=== PATIENT | female | born 1945 | race Caucasian/White ===

== ENCOUNTER 2018-11-12 09:47 | Inpatient (IN) | payer MEDICARE, OTHER, SELFPAY ==
[2018-10-28 13:42] VITALS: BMI 25.0
[2018-11-12] VITALS (13 sets, daily range): BP systolic 123–158; BP diastolic 61–91; PULSE 53–88; RESP 12–18; TEMP 35.6–36.8; O2SAT 95–100; BMI 25.0
--- NOTE | 2018-11-12 | DI.RAD.S_ITS ---
PROCEDURE: XR HIP W PEL IF DONE RT 2V INDICATIONS: TOTAL RIGHT HIP TECHNIQUE: AP pelvis and lateral view of the right hip acquired. COMPARISON: [facility], [place], XR HIP W PEL IF DONE RT 2V, 11/12/2018, 13:02. FINDINGS: Bones: Patient is status post right hip arthroplasty, with hardware components in expected positions. The hip joint appears congruent. Left hip osteophytic degenerative changes are noted. The visualized bony structures appear intact. Soft tissues: Overlying postoperative changes are noted. No suspicious soft tissue densities. IMPRESSION: Expected postsurgical change for right hip arthroplasty. Dictated by: Suzy Santos MD, PhD on 11/12/2018 at 16:22 Approved by: Suzy Santos MD, PhD on 11/12/2018 at 16:23
--- NOTE | 2018-11-12 06:00 | DI.RAD.S_ITS ---
PROCEDURE: XR HIP W PEL IF DONE RT 2V INDICATIONS: INTEROPERATIVE RIGHT TOTAL HIP TECHNIQUE: 4 spot fluoroscopic intraoperative views of the right hip and pelvis COMPARISON: None. FINDINGS: 4 spot fluoroscopic images demonstrating expected intraoperative alignment of right hip arthroplastic components. Dictated by: Morgan Silverman M.D. on 11/12/2018 at 16:45 Approved by: Morgan Silverman M.D. on 11/12/2018 at 16:46
[2018-11-12] MEDS: LACTATED RINGERS 1,000 ML 42 ML IV ×2 (10:27→14:21)
[2018-11-12] MEDS: VANCOMYCIN 1,000 MG/200 ML FROZ.PIGGY 200 MG IV (10:29)
[2018-11-12] MEDS: ACETAMINOPHEN 325 MG TABLET 975 MG PO ×2 (10:29→20:10)
[2018-11-12] MEDS: CELECOXIB 200 MG CAPSULE PO (10:29)
[2018-11-12] MEDS: PREGABALIN 75 MG CAPSULE PO (10:29)
--- NOTE | 2018-11-12 10:48 | PM.PREOP ---
Pre-operative Note Interval Note History & Physical reviewed/Exam performed by Physician: Yes Changes to H&P: No
--- NOTE | 2018-11-12 10:48 | PM.OP.1 ---
Operative Date/Time/Diagnoses Date of procedure: 11/12/18 Time of procedure: 11:11 Pre-op diagnosis: Right hip OA Post-op diagnosis: same Procedure & Clinicians Procedure: Right total hip arthroplasty anterior approach Same procedure as scheduled: Yes Indications: The patient has had progressively worsening right hip pain with radiographic changes consistent with arthritis. Non-operative management has failed and the patient has requested total hip replacement. The risks, benefits and alternatives to surgery were discussed with the patient prior to proceeding. Risks discussed included, but were not limited to, failure to relieve pain, leg length discrepancy, dislocation, stiffness, infection, nerve damage, deep venous thrombosis, pulmonary embolism, stroke, coma, heart attack, permanent paralysis and , as well as the potential need for eventual revision of the prosthetic. Surgeon: Zoraida Andrade Design Specialist: Kavita Gutiérrez Anesthesia Type: General and Spinal Operative Notes Findings: Severe right hip osteoarthritis, good stability, protrusio, tight hip Closure Type: primary Specimen(s): none sent Implants & Drains: Andrade [employer] Nephew anthology standard offset 7 standard offset, 36 x -3, 54 R3 cup Estimated Blood Loss (mL): 250 Blood products transfused: none Procedure in detail: The patient was brought to the operating room. Patient was carefully positioned in the supine position. Time-out was performed and antibiotics were given. Anesthesia was induced. She was positioned in the on the table in order to allow hyperextension of the hip. Bilateral lower extremities were prepped and draped in a standard sterile fashion. An anterior right hip incision was made 1 fingerbreadth lateral to the anterior superior iliac spine and extended distally towards the greater trochanter. Dissection was carried out through skin and subcutaneous tissues. The skin and subcutaneous tissues were carefully injected with Lidocaine with epi. Superficial hemostasis was achieved. The fascia over the tensor fascia richie was defined and incised with a knife. Two Allis clamps were used to grasp the fascia. Tensor fascia richie was retracted laterally. A gelpi retractor was placed. Dissection was carried out down along the neck. The circumflex vessels were carefully identified and cauterized with the Aqua Mantis. There was good visualization of the femoral neck. A Cobra was placed superior to the neck and the gluteus fibers were carefully stripped from that superior aspect of the capsule. A 2nd retractor was placed along the inferior aspect of the neck. The rectus insertion along the capsule was partially released. A 3rd retractor that was then gently placed over the rim of the acetabulum under the rectus. Capsule was carefully incised and released from the intertrochanteric line circumferentially superior to the mid sagittal line and inferiorly to the mid sagittal line until the lesser trochanter was palpable. A tag stitch was placed both in the superior and inferior limb of the capsular insertion. Along the acetabulum capsule was also released up to the mid sagittal 12:00 position. A portion of the labrum was resected. A saw was used to perform an osteotomy at the level of the intertrochanteric line and the junction of the superior femoral neck leaving approximately 1 finger breath of residual inferior neck above the lesser trochanter. A 2nd cut was made along the femoral neck at the base of the head and a napkin ring of neck was removed. Corkscrew was placed in the femoral head and the head was removed without difficulty. Retractors were then repositioned around the acetabulum. Residual labrum was resected and additional osteophytes were removed. She had significant protrusio and it was somewhat difficult to remove the head but it was removed without injury to the acetabulum. The head was somewhat soft and I removed it using a combination of corkscrew Blood as well as the tenaculum. The capsule was meticulously mobilized. It was very tight around the femur secondary to her protrusio. A reamer that was 4 mm below the templated size was placed by hand in the acetabulum and it was reamed to centralize the acetabulum. It was then reamed up to 2 under the templated size and fluoroscopy was brought in to confirm the position of the reaming and depth of reaming. I reamed 1 under the anticipated size. She had somewhat of an 80 duction contracture as well as flexion contracture I specifically mobilized around the acetabulum in order to allow passage of instruments. I also resected about 1-2 mm of additional neck in order to make a bigger gap in order to allow passage of the instruments. Anesthesia gave supplemental anesthesia to make sure the patient was completely relaxed and with traction reaming was performed and the cup was inserted. It was tamped into place was noted to be stable. It was intentionally set about 1 mm less deep than the sclerotic subchondral protrusio shadow. The stability of the cup was tested and was noted to be stable. A trial liner was placed. A trial cup was placed and noted that it was appropriately sized and fluoroscopy confirmed position and depth. The component was open and inserted without difficulty fluoroscopic imaging was used to confirm that the cup had been adequately seated and was well positioned. Neutral poly trial liner was placed. The cup was tested and noted to be stable. Attention was then directed to the femur. The femur was gently hyperextended additional capsular release was performed as needed in order to allow adequate visualization of the proximal femur with elevation of the femur. Patient was placed in a hyperextended slightly abducted position with maximum external rotation. Box osteotome was used to check for any residual neck as well as sclerotic bone along the trochanter. [place] pepper was placed in the femur. Additional broaching was performed. Canal finder was used to determine the alignment of the canal and position. Size 1 broach was placed. The canal was then appropriately broached up to the templated size as long as there was adequate stability of the broach and serial advancement of the broach without excessive impingement. Specific attention was directed at avoiding varus attempting to direct the distal aspect of the broach more anteriorly and avoiding excessive anteversion. Trial reduction showed acceptable range of motion, good stability, no posterior impingement, gnosticism of leg length and appropriate lateral shuck. I also hyperflexed the hip and checked that there was no impingement anteriorly and there was good stability with flexion, abduction and internal rotation. Final neutral poly was placed without difficulty. Marcaine and Exparel were injected.. The stem was placed without difficulty. Repeat trial reduction and x-ray showed acceptable overall position, length, and no evidence of the femoral fracture. Final head was placed. Wound was meticulously irrigated with normal saline. The hip was reduced and additional Exparel and Marcaine were injected. The capsule was closed with interrupted nonabsorbable sutures. The fascia of the tensor was closed with interrupted and running Vicryl. No drain was placed. Any tensor fascia richie muscle that appeared to be contused or injured which was a minimal amount was carefully resected. Capsule around the tensor was injected with Exparel and Marcaine. The skin was closed with barbed stitches for the subcutaneous tissue and skin. We also used surgical glue. The wound was dressed sterilely. It was meticulously irrigated with normal saline. Patient was transferred to recovery room in satisfactory condition. Complications: none Condition: stable Disposition: Acute Care Plan for aftercare: The patient will be maintained on a standard total hip replacement protocol with weight bearing as tolerated and anterior hip precautions. The patient will receive Aspirin and sequential compression devices for DVT prophylaxis. The patient will be discharged home when safe for the home environment.
[2018-11-12] MEDS: CEFAZOLIN 2 GM/100 ML FROZ.PIGGY IV ×2 (11:30→20:22)
[2018-11-12] MEDS: TRANEXAMIC ACID 1,000 MG VIAL 1000 MG INJ ×2 (11:40→15:11)
[2018-11-12] MEDS: LIDOCAINE 1% W/EPI INJ 20 ML INJ (11:55)
--- NOTE | 2018-11-12 12:13 | SUR.OPER ---
Supine, head on pillow, torso on pink pad positioner. Iliac crest at flex of foot end of table. Gel roll under operative hip. Both arms secured on arm boards <90 degrees abduction.
[2018-11-12] MEDS: BUPIVACAINE 0.25% W/ EPI VIAL 50 ML INJ (12:25)
[2018-11-12] MEDS: BUPIVACAINE LIPOSOME 266 MG/20 ML VIAL INJ (12:30)
[2018-11-12] MEDS: POVIDONE-IODINE 15 ML, SODIUM CHLORIDE 0.9% 250 ML TOP (12:34)
[2018-11-12] MEDS: LACTATED RINGERS 1,000 ML 125 ML IV (17:02)
--- NOTE | 2018-11-12 18:29 | PC.NURSE ---
Addendum entered by Shikha Gomez R.N. 11/12/18 21:46: Pt had relatively uneventful evening. Satisfactory post op course. Dsg CDI. Assisted to BSC to void. Call light w/in reach, bed alarm on for pt safety. Continue w/plan of care Original Note: Pt arrived from PACU at 1640. Drowsy, awakens easily. Lungs clear, SpO2 100% RA. Dsg to right anterior hip CDI. Stable post op course. Call light w/in reach, bed alarm on for pt safety.
[2018-11-12] MEDS: ASPIRIN EC 81 MG TABLET PO (20:11)
[2018-11-12] MEDS: DOCUSATE 100 MG CAPSULE PO (20:11)
[2018-11-13] MEDS: IBUPROFEN 600 MG TABLET PO ×3 (00:29→14:00)
[2018-11-13] MEDS: LACTATED RINGERS 1,000 ML 125 ML IV (01:31)
[2018-11-13] MEDS: CEFAZOLIN 2 GM/100 ML FROZ.PIGGY IV (03:36)
[2018-11-13 04:17] VITALS: BP 120/51; PULSE 63; RESP 16; TEMP 36.6; O2SAT 100
--- NOTE | 2018-11-13 04:24 | DI.RAD.S_ITS ---
PROCEDURE: XR HIP W PEL IF DONE RT 2V INDICATIONS: Stood up at bedside and Iron popping sound. TECHNIQUE: AP pelvis with lateral view(s) of the right hip(s). COMPARISON: [facility], , XR HIP W PEL IF DONE RT 2V, 11/12/2018, 15:55. FINDINGS: Bones: No fractures or dislocations. Expected postoperative alignment of right hip arthroplasty. Pelvic ring appears intact. No suspicious bony lesions. Overlying postsurgical soft tissue changes as before. Multiple pelvic phleboliths. [id number] left hip joint degeneration. Chronic calcification projecting at the left greater trochanter as before. IMPRESSION: Expected postoperative alignment of right hip arthroplasty. No evidence of hardware failure. Acute fracture seen. Dictated by: Morgan Silverman M.D. on 11/13/2018 at 7:58 Approved by: Morgan Silverman M.D. on 11/13/2018 at 7:59
[2018-11-13 06:21] LABS: Hematocrit 35.5 % (36-46); Hemoglobin 11.9 g/dL (12.0-16.0)
--- NOTE | 2018-11-13 06:34 | PC.NURSE ---
Pt. declined any pain med. this morning. Was been sleeping since she got up to BSC @ 3
--- NOTE | 2018-11-13 06:35 | PC.NURSE ---
Pt. declined any pain med. this morning. States I'm okay, no pain, will cont. POC & monitor.
[2018-11-13 07:00] VITALS: BP 126/47; PULSE 70; RESP 16; TEMP 36.6; O2SAT 100
--- NOTE | 2018-11-13 07:53 | P.DS_ITS ---
History of Present Illness Date Patient Seen: 11/13/18 Time Patient Seen: 07:53 Chief complaint: [id number] Narrative: The patient has had progressively worsening right hip pain with radiographic changes consistent with arthritis. Non-operative management has failed and the patient has requested total hip replacement. The risks, benefits and alternatives to surgery were discussed with the patient prior to proceeding. Risks discussed included, but were not limited to, failure to relieve pain, leg length discrepancy, dislocation, stiffness, infection, nerve damage, deep venous thrombosis, pulmonary embolism, stroke, coma, heart attack, permanent paralysis and , as well as the potential need for eventual revision of the prosthetic. Discharge Providers Date of admission: 11/12/18 09:47 Primary care physician: OSEI Peters Consults: 11/12/18 06:00 Consult to Anesthesiology Routine Comment: Consulting Provider: Anesthesiologist Reason for consultation: Regional block for post operative pain control 11/12/18 16:49 Consult to Discharge Planning Routine Comment: Consult to Physical Therapy Evaluate & Treat Comment: Physician Instructions: post op HODA protocol Consult to Respiratory Therapy Evaluate & Treat Comment: Physician Instructions: Evaluate and treat Discharge provider: Adelaida Choudhary PA-C Discharge Date: 11/13/18 Summary Discharge Diagnosis: s/p right total hip replacement Hospital Course: Leonid was admitted for a left total hip replacement with Dr. Andrade and she consented to procedure. Hospital course was unremarkable. On postop day 1. Patient was ready for discharge home. She was eating and voiding without difficulty or assistance. She has been up and mobilizing with physical therapy after surgery. She has all her medications at home. She has her postop therapy scheduled. She has ASA for DVT prophylaxis. Status at Discharge Functional status at discharge: uses cane/walker Exam Vital Signs (past 8 hours): - 11/13/18 04:17 Temperature 97.8 F Pulse Rate 63 Respiratory Rate 16 Blood Pressure 120/51 L Pulse Oximetry 100 Oxygen Delivery Method Room Air Narrative Exam Narrative: Patient is sitting in bedside chair no acute distress. She is alert and oriented x3. Dressing on right hip is CDI. Calves are soft, compressible, nontender bilaterally. Pulses are symmetrical. Her pain was well -controlled last night with Tylenol. Denies chest pain or shortness of breath. Objective Labs Result Diagrams: 11/13/18 05:34 Labs: Laboratory Results - last 24 hr 11/13/18 05:34 Hgb 11.9 L Hct 35.5 L Discharge Plan Discharge Plan Patient Disposition: Home Discharge comment: DC home this afternoon Discharge Med Rec/Prescriptions Prescriptions: New acetaminophen 325 mg Tablet 975 mg PO TID Qty: 60 RF: 0 aspirin 81 mg Tablet,Delayed Release (Dr/Ec) 81 mg PO BID Qty: 60 RF: 0 Continue chlorpheniramine maleate [Chlor-Trimeton] 4 mg Tablet 4 mg PO PRN PRN (Reason: Allergies) RF: 0 ibuprofen 200 mg Tablet 200 mg PO PRN PRN (Reason: Pain) RF: 0 vitamin B complex Tablet 1 tab PO DAILY RF: 0 tamoxifen 20 mg Tablet 20 mg PO SEEINSTR RF: 0 cholecalciferol (vitamin D3) [Vitamin D3] 5,000 unit Tablet 15,000 unit PO DAILY RF: 0 Follow up/Referrals: Zoraida Andrade MD [Physician] - (5-7 days) Provider Discharge Instructions Diet: Diet as Tolerated Skin/Wound/Dressing Care Report to your healthcare provider any signs of infection, such as:: chills, fever and increased pain Dressing: leave in place for 10-14 days Visit Report/Discharge Packet Instructions: DI for Hip Replacement Discharge Data Primary Care Provider: Caity Linder Attending Provider: Zoraida Andrade Admit Date/Time: 11/12/18 09:47
[2018-11-13] MEDS: ACETAMINOPHEN 325 MG TABLET 975 MG PO ×2 (08:17→14:00)
[2018-11-13] MEDS: CHOLECALCIFEROL (VITAMIN D3) 5,000 UNIT TABLET 15000 UNIT PO (08:18)
[2018-11-13] MEDS: DOCUSATE 100 MG CAPSULE PO (08:18)
[2018-11-13] MEDS: ASPIRIN EC 81 MG TABLET PO (08:26)
--- NOTE | 2018-11-13 09:15 | PT.IIE ---
Current Diagnoses Unilateral primary osteoarthritis, right hip (11/12/18) Stiffness of right hip, not elsewhere classified (11/12/18) Surgery Performed Operation Date: 11/12/18 12:00 Actual Procedures p Total Hip Arthroplasty/Anterior Approach(Right) - Zoraida Andrade MD Surgical History (Last Updated 10/28/18 @ 14:33 by Amber Ng, RN) History of blepharoplasty (Acute) History of colonoscopy (Acute) History of esophagogastroduodenoscopy (EGD) (Acute) Medical History (Last Updated 10/28/18 @ 14:33 by Amber Ng, RN) Achalasia (Acute) Afib (Acute) Allergic rhinitis (Acute) Basal cell carcinoma (BCC) of face (Acute) Breast cancer, right (Acute) Cataract fragments of both eyes following cataract surgery (Acute) Diverticulosis (Acute) Dysphasia (Acute) Osteopenia (Acute) Postmenopausal (Acute) Sciatica (Acute) Shingles (Acute) Squamous cell carcinoma (Acute) Swallowing difficulty (Acute) Tendinopathy of right rotator cuff (Acute) Unilateral primary osteoarthritis, right hip (Acute) Vertigo (Acute) Physical Therapy Inpatient Evaluation/Re-Eval M1 PT/OT-IP Prior Functional Status Start: 11/13/18 13:31 Freq: NEEDED Status: Active Protocol: Document 11/13/18 09:55 AB (Rec: 11/13/18 13:47 AB [id number]) Medical Review Prior Functional Status Medical History Reviewed Yes Communication able to make needs known Mobility and Gait pt stated thta she is indpeendent with all mobilities and ambulation wihtout AD but occasionally uses [employer] pole for outdoor mobility depending on pain level Social History Household Members none Living Arrangements House Number of Floors (Floors) Two Floors Number of Stairs To Enter/Railing? pt stays on main level of the house; has 3 steps to enter with R rail ascending but also has a ramp Home Environment High Toilet Walk in Shower Home Equipment Front Wheel Walker Straight Cane Raised Toilet Seat Without Armrests Shower Seat with Backrest Incinerator Attendant Grab Bars Near Toilet Grab Bars In Shower Employment Status Retired Additional Social History Comment has hiking pole stated that her daughter in law will stay with her for 1-2 days and then her son will stay with her afterwards and will have 24/7 assistance for ~ 1 week. M2 PT-IP Current Condition Start: 11/13/18 13:31 Freq: NEEDED Status: Active Protocol: Document 11/13/18 09:55 AB (Rec: 11/13/18 13:47 AB [id number]) Physical Therapy Current Condition Current Condition Evaluation Date 11/13/18 Treatment Diagnosis s/p R HODA anterior approach; difficulties in walking Onset Date 11/12/18 Precautions Anterior Hip Precautions No Hip Extension No Hip External Rotation Weight Bearing Status Weight Bearing Status Weight Bear as Tolerated M3 PT-IP Subjective Start: 11/13/18 13:31 Freq: NEEDED Status: Active Protocol: Document 11/13/18 09:55 AB (Rec: 11/13/18 13:47 AB [id number]) Subjective Physical Therapy Visit Type Type Initial Evaluation Visit Start Time 09:55 Visit Stop Time 10:57 Total Visit Minutes 62 Number of [employer] SUPERVISOR Visits 0 Physical Therapy Visit Comments Patient Comments pt agreeable to do PT Therapy Pain Assessment Pain When Pain Assessed At Rest Pain Present Pain Present Pain Reported Location Right Hip Intensity 2 Scale Used Numeric (1 - 10) Pain Management Techniques Apply Cold Re-positioning Timing of Activity with Medications M4 PT-IP Mobility and Gait Start: 11/13/18 13:31 Freq: NEEDED Status: Active Protocol: Document 11/13/18 09:55 AB (Rec: 11/13/18 13:47 AB [id number]) PT-Bed Mobility Assessment Supine to Sit Supine to Sit Standby Assistance Sit to Supine Sit to Supine Standby Assistance Scooting Scooting to Edge of Bed Standby Assistance PT-Transfer Assessment Sit to and From Stand Sit to and from Stand Standby Assistance Contact Guard Assistance Equipment Transfer Assistive Device Gait Belt Front Wheeled Walker Orthotic/Prosthetic Devices or Brace: No Transfers Transfer Destination Toilet Transfer Technique pt ambulated to the toilet using FWW Transfer Ability Level of Assist Standby Assistance Contact Guard Assistance 1 Person Assistance Use of Upper Extremities Gait Assessment Gait Gait Assistance Required: Contact Guard Assist Distance (Feet) 100 Assistive Devices Assistive Device Gait Belt Front Wheeled Walker Orthotic/Prosthetic Devices or Brace: No Gait Deviations General Gait Pattern Antalgic Decreased Stride Length Decreased Feet Clearance Factors Limiting Gait Function Factors Limiting Gait Function Decreased Activity Tolerance Decreased Strength Limited Range of Motion Pain Poor Balance Poor Safety Awareness Comments Gait Comments pt ambulated using FWW 100 ft x 2 requiring SBA to CGA and cues for hip precautions. Stair Climbing Assessment Evaluation Level of Assist On Stairs Contact Guard Assistance Minimal Assistance 1 Person Assistance Devices Stair Climbing Assistive Devices Right Railing Technique/Endurance Stair Climbing Direction Ascend and Descend Stair Climbing Technique Step to Step Number of Steps Climbed 3 Query Text: Stair Climbing Set # Repetitions (reps) 2 Comments Stair Climbing Comments caregiver training conducted for stair climbing and daughter in law was able to assist pt safely PT-Balance Assessment Sitting Balance and Reactions Static Sitting Balance Ability Good Dynamic Sitting Balance Ability Good Standing Balance and Reactions Static Standing Balance Ability Fair Dynamic Standing Balance Ability Fair Device Used FWW M5 PT-IP Objective Assessments Start: 11/13/18 13:31 Freq: NEEDED Status: Active Protocol: Document 11/13/18 09:55 AB (Rec: 11/13/18 13:47 AB [id number]) Orientation Orientation/Cognition Level of Alertness Alert Orientation Name Age Birthday Month Date Year Day of Week Place Situation Safety Awareness Decreased Safety Awareness Memory Description Short Term Impaired Gross Range of Motion Lower Extremity ROM Assessment Within Functional Limits Strength Lower Extremity Strength Assessment Right Impaired Knee 3+/5 Coordination Assessment Gross Coordination Gross Coordination WNL Sensation Assessment Sensation Gross Sensation WNL Muscle Tone Muscle Tone WNL Yes M6 PT-IP Treatment Start: 11/13/18 13:31 Freq: NEEDED Status: Active Protocol: Document 11/13/18 09:55 AB (Rec: 11/13/18 13:47 AB [id number]) Physical Therapy Treatment Exercises Exercises Heel Slides Education Education Provided Precautions Weight Bearing Status Post-Op Packet Safety M7 PT-IP Assessment and Plan Start: 11/13/18 13:31 Freq: NEEDED Status: Active Protocol: Document 11/13/18 09:55 AB (Rec: 11/13/18 13:47 AB [id number]) PT Summary Assessment and Plan Potential Rehabilitation Potential Good Status of Condition at Evaluation Stable Summary Impairments Pain ROM Strength Balance Coordination Sensation Tone Cognition Bed Mobility Transfers Gait Activity Tolerance Assessment Summary pt requiring SBA to min A with mobility and will have family to assist her. daughter in law trained to assist pt with stair climbing and educated on how to assist with bed mobility, transfers and ambulation. pt plans to go home later today. Goals Bed Mobility Goal Independent Transfer Goal Independent Front Wheeled Walker Gait Goal Independent Front Wheel Walker Gait Distance 200 Other Goals up/down 3 steps with R rail ascending SBA Days to Meet Goals 3 Frequency of Treatment Frequency Of Treatment Twice a Day Treatment Plan Physical Therapy Treatment Plan Bed Mobility Training Transfer Training Gait Training Therapeutic Exercise Balance Retraining Post Op Education Discharge Planning Hot or Cold Pack Neuromuscular Re-ed Coordination Retraining Manual Therapy Other Recommendations and Next Treatment ambulation, caregiver training Focus , stair climbing training Recommendations To Nursing Amount of Assist Needed 1 Person Assist Discharge Recommendations PT Discharge Recommendations Home with 19/05 Assist Outpatient PT
--- NOTE | 2018-11-13 10:27 | PC.NURSE ---
Pt A&Ox3, minimal complaints of pain & tolerating with po APAP/ibuprofen and ambulating SBA w/FWW. CMS intact, aquacel CDI to anterior thigh. Pt working with PT this morning. Dtr in law at bedside, will continue to monitor.
--- NOTE | 2018-11-13 14:51 | CM.IDA ---
Discharge Planning/Care Management Advanced directive, confirm from FAMILY Start: 11/12/18 17:55 Freq: Q24H Status: Discharge Protocol: Document 11/12/18 18:27 KMD (Rec: 11/12/18 18:28 KMD [id number]) Advance Directive, confirm on record Time 18:28 Person contacted Daughter Copy received Yes Advanced directive available on record Yes CM Discharge Assessment Start: 11/13/18 14:46 Freq: Status: Discharge Protocol: Document 11/13/18 14:46 RAVI (Rec: 11/13/18 14:51 JW [id number]) Discharge Planning Assessment Assigned Necktie Stitcher GEETA Wharton DPOA/Assigned Designee Name Martine Gonzalez, dtr [phone] Simone Cai, son ([place]) Contact Information [phone] Advance Directives? Yes Advance Directives on File No History Provided By Patient Prior Living Arrangements House Household Members none Type of transporation used prior to Drives own vehicle admit Independent with ADL's Yes: Active and Indp on Familia Is Is patient alert and oriented? Yes Barriers to Discharge No Comment Met w/pt and her dtr in law at bedside, explained SW role. Pt has been living on [facility] for approx 4 years, retired, and likes living on [place]. Son and dtr in law live in [place] and have traveled up to care for pt as she is DC home. Pt confident about returning home and has DME and assistance from family. 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 # of Necktie Stitcher Review Status In Process
== END 2018-11-13 14:20 | disposition home or self-care (01) | DRG 470 ==
PROVIDERS: Admitting Provider Orthopaedic Surgery; Family Provider Ophthalmology; PCP Nurse Practitioner Family; Visit Provider Orthopaedic Surgery
PROC: 0SR902Z Replacement of Right Hip Joint with Metal on Polyethylene Synthetic Substitute, Open Approach (ICD-10-PCS; CPT 27130; principal; 2018-11-12 12:00)
DX: M16.11 Unilateral primary osteoarthritis, right hip (principal); Z87.891 Personal history of nicotine dependence
CPT/HCPCS: 36415; 73502; 85014; 85018; 97116; 97161; 97530; C1776; C9290; J0690; J1100; J2250; J2274; J2405; J2704; J3010; J3370

== ENCOUNTER → 2022-08-12 14:04 | Outpatient (CLI) | payer OTHER, SELFPAY ==
[2018-11-12 17:00] VITALS: BMI 25.0
[2022-08-12 17:23] LABS: COVID19 -Nasal RAPID Negative (Negative)
== END ==
PROVIDERS: Family Provider Ophthalmology; PCP Nurse Practitioner Family; Referring Provider Orthopaedic Surgery; Visit Provider Orthopaedic Surgery
DX: Z20.822 Contact with and (suspected) exposure to COVID-19 (principal)
CPT/HCPCS: 87635; C9803

== ENCOUNTER 2022-08-13 05:50 | Day surgery (SDC) | payer OTHER, SELFPAY ==
[2018-11-12 17:00] VITALS: BMI 25.0
[2022-08-06 13:54] VITALS: BMI 25.5
[2022-08-13] VITALS (14 sets, daily range): BP systolic 117–156; BP diastolic 68–88; PULSE 66–79; RESP 11–18; TEMP 34–36.6; O2SAT 95–100; BMI 25.5
--- NOTE | 2022-08-13 06:00 | DI.RAD.S_ITS ---
PROCEDURE: XR HIP W PEL IF DONE LT 2V INDICATIONS: TOTAL LEFT HIP ARTHROPLASTY TECHNIQUE: 4 intraoperative fluoroscopic low resolution spot films were obtained COMPARISON: [facility], [place]NE, XR HIP W PEL IF DONE RT 2V, 11/13/2018, 4:36. FINDINGS: Low resolution intraoperative spot films show total left hip arthroplasty in good position. Partially imaged right hip arthroplasty present as well. IMPRESSION: Fluoroscopic guidance Approved by: Vincent Rodrigues M.D. on 08/13/2022 at 12:53
[2022-08-13] MEDS: LACTATED RINGERS 1,000 ML 42 ML IV ×2 (06:51→09:17)
[2022-08-13] MEDS: VANCOMYCIN 1,000 MG/200 ML PIGGYBACK 200 MG IV (07:10)
[2022-08-13] MEDS: ACETAMINOPHEN 325 MG TABLET 975 MG PO (07:15)
[2022-08-13] MEDS: CELECOXIB 200 MG CAPSULE PO (07:35)
--- NOTE | 2022-08-13 07:44 | P.OP_ITS ---
Operative Date/Time/Diagnoses Date of procedure: 08/13/22 Time of procedure: 07:55 Pre-op diagnosis: left hip OA Post-op diagnosis: same Procedure & Clinicians Procedure: Left total hip arthroplasty anterior approach Same procedure as scheduled: Yes Indications: The patient has had progressively worsening left hip pain with radiographic turner ges consistent with arthritis. Non-operative management has failed and the patient has requested total hip replacement. The risks, benefits and alternatives to surgery were discussed with the patient prior to proceeding. Risks discussed included, but were not limited to, failure to relieve pain, leg length discrepancy, dislocation, stiffness, infection, nerve damage, deep venous thrombosis, pulmonary embolism, stroke, coma, heart attack, permanent paralysis and , as well as the potential need for eventual revision of the prosthetic. Surgeon: Zoraida Andrade [employer] Supervisor: Eriberto Ledezma Anesthesia Type: General and Spinal Operative Notes Findings: Severe left hip osteoarthritis, good stability, soft bone Closure Type: primary Specimen(s): none sent Prosthetic devices, grafts, tissues, transplants, or devices: [employer]rade [employer] Nephew R3 54 cup, neutral poly liner, size 6 standard offset anthology,-3 x 36 cobalt chrome femoral head, one 6.5mm screw Estimated Blood Loss (mL): 250 Blood products transfused: none Procedure in detail: The patient was brought to the operating room. Patient was carefully positioned in the supine position. Time-out was performed and antibiotics were given. Anesthesia was induced. She was positioned in the on the table in order to allow hyperextension of the hip. The left lower extremity was prepped and draped in a standard sterile fashion. An anterior left hip incision was made 1 fingerbreadth lateral to the anterior superior iliac spine and extended distally towards the greater trochanter. Dissection was carried out through skin and subcutaneous tissues. Superficial hemostasis was achieved. The fascia over the tensor fascia richie was defined and incised with a knife. Two Allis clamps were used to grasp the fascia. Tensor fascia richie was retracted laterally. A gelpi retractor was placed. Dissection was carried out down along the neck. The circumflex vessels were carefully identified and cauterized with the Aqua Mantis. There was good visualization of the femoral neck. A Cobra was placed superior to the neck and the gluteus fibers were carefully stripped from that superior aspect of the capsule. A 2nd retractor was placed along the inferior aspect of the neck. The rectus insertion along the capsule was partially released. A 3rd retractor that was then gently placed over the rim of the acetabulum under the rectus. Capsule was carefully incised and released from the intertrochanteric line circumferentially superior to the mid sagittal line and inferiorly to the mid sagittal line until the lesser trochanter was palpable. A tag stitch was placed both in the superior and inferior limb of the capsular insertion. Along the acetabulum capsule was also released up to the mid sagittal 12:00 position. A portion of the labrum was resected. A saw was used to perform an osteotomy at the level of the intertrochanteric line and the junction of the superior femoral neck leaving approximately 1 finger breath of residual inferior neck above the lesser trochanter. A 2nd cut was made along the femoral neck at the base of the head and a napkin ring of neck was removed. Corkscrew was placed in the femoral head and the head was removed without difficulty. Retractors were then repositioned around the acetabulum. Residual labrum was resected and additional osteophytes were removed. A reamer that was 4 mm below the templated size was placed by hand in the acetabulum and it was reamed to centralize the acetabulum. It was then reamed up to 2 under the templated size and fluoroscopy was brought in to confirm the position of the reaming and depth of reaming. I reamed 1 under the anticipated size. A trial cup was placed and noted that it was appropriately sized and fluoroscopy confirmed position and depth. The component was open and inserted without difficulty fluoroscopic imaging was used to confirm that the cup had been adequately seated and was well positioned. It was further stabilized with a single screw. Neutral poly liner was placed. The cup was tested and noted to be stable. Attention was then directed to the femur. The femur was gently hyperextended additional capsular release was performed as needed in order to allow adequate visualization of the proximal femur with elevation of the femur. Patient was placed in a hyperextended slightly adducted position with maximum external rotation. Box osteotome was used to check for any residual neck as well as sclerotic bone along the trochanter. [place] pepper was placed in the femur. Additional broaching was performed. Canal finder was used to determine the alignment of the canal and position. Size 1 broach was placed. The canal was then appropriately broached up to the templated size as long as there was adequate stability of the broach and serial advancement of the broach without excessive impingement. Specific attention was directed at avoiding varus attempting to direct the distal aspect of the broach more anteriorly and avoiding excessive anteversion. Trial reduction showed acceptable range of motion, good stability, no posterior impingement, temple of leg length and appropriate lateral shuck. I also hyperflexed the hip and checked that there was no impingement anteriorly and there was good stability with flexion, adduction and internal rotation. Marcaine and Exparel were injected. The stem was placed without difficulty. Repeat trial reduction and x-ray showed acceptable overall position, length, and no evidence of the femoral fracture. Final head was placed. Wound was meticulously irrigated with normal saline. The hip was reduced and additional Exparel and Marcaine were injected. The capsule was closed with interrupted nonabsorbable sutures. The fascia of the tensor was closed with interrupted and running Vicryl. No drain was placed. Any tensor fascia richie muscle that appeared to be contused or injured which was a minimal amount was carefully resected. Capsule around the tensor was injected with Exparel and Marcaine. The skin was closed with barbed stitches for the subcutaneous tissue and skin. We also used surgical glue. The wound was dressed sterilely. Brief Betadine soak was also used and was meticulously irrigated with normal saline. Patient was transferred to recovery room in satisfactory condition. Complications: none Post-operative Condition: stable Disposition: Acute Care Plan for aftercare: The patient will be maintained on a standard total hip replacement protocol with weight bearing as tolerated and anterior hip precautions. The patient will receive Aspirin and sequential compression devices for DVT prophylaxis. The patient will be discharged home when safe for the home environment.
--- NOTE | 2022-08-13 07:44 | PM.PREOP ---
Pre-operative Note COVID-19 COVID-19 status: Negative Interval Note History & Physical reviewed/Exam performed by Physician: Yes Changes to H&P: No
[2022-08-13] MEDS: CEFAZOLIN 2 GM/100 ML PREMIX 100 ML IV ×3 (07:50→23:44)
[2022-08-13] MEDS: TRANEXAMIC ACID 1,000 MG VIAL 2000 MG INJ ×2 (08:19→09:56)
--- NOTE | 2022-08-13 08:26 | SUR.OPER ---
Supine on padded [place] table with bilateral legs secured in padded positioning boots and suspended in positioning spars, operative leg in traction per surgeon. Head on one pillow. Arm on non-operative side secured on padded armboard <90 degrees abduction. Arm on operative side padded and resting across chest then secured with tape over sheet. Padded perineal post in place per surgeon.
[2022-08-13] MEDS: BUPIVACAINE LIPOSOME 266 MG/20 ML VIAL INJ (08:33)
[2022-08-13] MEDS: BUPIVACAINE 0.25% (PF) 60 ML, EPINEPHrine 0.3 MG INJ (08:34)
--- NOTE | 2022-08-13 10:00 | DI.RAD.S_ITS ---
PROCEDURE: XR HIP W PEL IF DONE LT 2V INDICATIONS: POST OPERATIVE TOTAL LEFT HIP TECHNIQUE: 2 view(s) of the hip acquired. COMPARISON: [facility], [place], XR HIP W PEL IF DONE LT 2V, 08/13/2022, 9:26. FINDINGS: Bones: Patient is status post left hip arthroplasty, with hardware components in expected positions. The hip joint appears congruent. The visualized bony structures appear intact. Soft tissues: Overlying postoperative changes are noted. No suspicious soft tissue densities. IMPRESSION: Status post left hip arthroplasty. Dictated by: Ayanna Fabian M.D. on 08/13/2022 at 12:39 Approved by: Ayanna Fabian M.D. on 08/13/2022 at 12:47
--- NOTE | 2022-08-13 10:56 | SUR.PHASEI ---
Called report to Heide FERRERA on the floor, pt transferred pt on OPB with belongings
[2022-08-13] MEDS: ONDANSETRON 4 MG ODT PO ×2 (11:50→20:00)
[2022-08-13] MEDS: OXYCODONE IR 10 MG TABLET PO (11:51)
[2022-08-13] MEDS: IBUPROFEN 400 MG TABLET PO ×3 (11:52→23:44)
[2022-08-13] MEDS: ACETAMINOPHEN 325 MG TABLET 650 MG PO ×3 (11:56→23:44)
[2022-08-13] MEDS: LACTATED RINGERS 1,000 ML 125 ML IV ×2 (11:56→21:15)
--- NOTE | 2022-08-13 13:15 | PT.IIE ---
Current Diagnoses Unilateral primary osteoarthritis, left hip (08/13/22) Surgery Performed Operation Date: 08/13/22 07:45 Actual Procedures p Total Hip Arthroplasty/Anterior Approach(Left) - Zoraida Andrade MD Surgical History (Last Updated 08/06/22 @ 14:05 by Tina Jean RN) History of blepharoplasty History of colonoscopy History of esophagogastroduodenoscopy (EGD) History of total replacement of right hip (11/12/18) Medical History (Last Updated 08/21/21 @ 09:37 by Erin Hayden) Achalasia (~2011) Actinic keratosis (~2005) Afib Allergic rhinitis Basal cell carcinoma (BCC) of face Breast cancer, right Cataract fragments of both eyes following cataract surgery (~2011) Chickenpox Chronic back pain (~2000) Chronic dermatitis (~2005) Colon polyps (~2007) Diverticulosis Dyspareunia (~2014) Dysphasia Hearing loss (~2013) Hemorrhoids (~2010) Measles Mumps Osteopenia Postmenopausal Sciatica Shingles Shoulder pain (~1986) Squamous cell carcinoma Swallowing difficulty Tendinopathy of right rotator cuff Unilateral primary osteoarthritis, right hip Vertigo Physical Therapy Inpatient Evaluation/Re-Eval M1 PT/OT-IP Prior Functional Status Start: 08/13/22 14:07 Freq: NEEDED Status: Active Protocol: Document 08/13/22 13:15 AB (Rec: 08/13/22 14:18 AB [id number]) Medical Review Prior Functional Status Medical History Reviewed Yes Communication able to make needs known Mobility and Gait pt stated that she is indpeendent with all mobilities and ambulation without AD but occasionally uses a SPC Social History Household Members none Living Arrangements House Number of Floors (Floors) Two Floors Number of Stairs To Enter/Railing? pt will stay on main level of the house 3 steps to enter with R rail ascending Home Environment High Toilet,Walk in Shower Home Equipment Front Wheel Walker,Four Wheel Walker,Straight Cane,Raised Toilet Seat Without Armrests, Shower Seat with Backrest,Hand Held Shower,Grab Bars Near Toilet,Grab Bars In Shower Additional Social History Comment pt's [id number] or son will stay with pt ~ 10 days and afterwards will have somebody that will check on her daily M2 PT-IP Current Condition Start: 08/13/22 14:07 Freq: NEEDED Status: Active Protocol: Document 08/13/22 13:15 AB (Rec: 08/13/22 14:18 AB [id number]) Physical Therapy Current Condition Current Condition Evaluation Date 08/13/22 Treatment Diagnosis s/p L HODA anterior appraoch; difficulty in walking Onset Date 08/13/22 M3 PT-IP Subjective Start: 08/13/22 14:07 Freq: NEEDED Status: Active Protocol: Document 08/13/22 13:15 AB (Rec: 08/13/22 14:18 AB [id number]) Subjective Physical Therapy Visit Type Type Initial Evaluation Visit Start Time 13:15 Visit Stop Time 14:05 Total Visit Minutes 40 Number of SUPERVISOR HOUSECLEANER Visits 0 Physical Therapy Visit Comments Patient Comments agreeable to do PT Therapy Pain Assessment Pain When Pain Assessed At Rest Pain Present Pain Present Pain Reported Location Left Hip Intensity 4 Scale Used Numeric (0 - 10) Pain Management Techniques Apply Cold,Distraction, Modification of Treatment,Re- positioning,Timing of Activity with Medications M4 PT-IP Mobility and Gait Start: 08/13/22 14:07 Freq: NEEDED Status: Active Protocol: Document 08/13/22 13:15 AB (Rec: 08/13/22 14:18 AB [id number]) PT-Bed Mobility Assessment Supine to Sit Supine to Sit Standby Assistance Sit to Supine Sit to Supine Standby Assistance PT-Transfer Assessment Sit to and From Stand Sit to and from Stand Minimal Assistance,1 Person Assistance,Use of Upper Extremities Equipment Transfer Assistive Device Gait Belt,Front Wheeled Walker Orthotic/Prosthetic Devices or Brace: No Transfers Transfer Destination Bedside Commode Transfer Technique Stand Step Pivot Transfer Ability Level of Assist Minimal Assistance,1 Person Assistance,Use of Upper Extremities Comments Mobility Comments pt's DIL in room with pt. educated pt and DIL regarding anterior hip precautions. pt completed supine to sit SBA but max cues for techniques. pt requires increase time to complete tasks and follow directions. pt able to sit on EOB SBA. stated that she does not have bladder control and might have wet the bed. bedside commode placed next to pt. completed sit to stand min A and step transfer to commode using FWW min A and cues. pt assisted with hygiene care and brief management. completed sit to stand from bedside commode min A and step transfer to bed using FWW min A. pt agreed to do ambulation. completed sit to stand from bed min A and ambulated in room using FWW ~ 30 ft initially with min A but midway only CGA but continues to require cues for precautions and safety. pt completed sit to supine SBA with max cues for techniques. positioned pt in bed. call light and table placed within reach. Gait Assessment Gait Gait Assistance Required: Contact Guard Assist,Minimum Assistance,1 Person Assist Distance (Feet) 30 Able to Maintain Weight Bearing Status Yes During Gait Assistive Devices Assistive Device Gait Belt,Front Wheeled Walker Orthotic/Prosthetic Devices or Brace: No Gait Deviations General Gait Pattern Decreased Stride Length, Decreased Feet Clearance Factors Limiting Gait Function Factors Limiting Gait Function Decreased Activity Tolerance, Decreased Strength,Difficulty Following Directions,Limited Range of Motion,Pain,Poor Balance,Poor Safety Awareness PT-Balance Assessment Sitting Balance and Reactions Static Sitting Balance Ability Normal Dynamic Sitting Balance Ability Good Standing Balance and Reactions Static Standing Balance Ability Fair Dynamic Standing Balance Ability Fair Device Used FWW M5 PT-IP Objective Assessments Start: 08/13/22 14:07 Freq: NEEDED Status: Active Protocol: Document 08/13/22 13:15 AB (Rec: 08/13/22 14:18 AB [id number]) Orientation Orientation/Cognition Level of Alertness Alert Orientation Name Language Function Ability No Deficits Noted Safety Awareness Decreased Safety Awareness Memory Description No Deficits Noted Gross Range of Motion Lower Extremity ROM Assessment Within Functional Limits Strength Lower Extremity Strength Assessment Left Impaired Hip 3+/5 Knee 4-/5 Coordination Assessment Gross Coordination Gross Coordination WNL Sensation Assessment Sensation Gross Sensation WNL Muscle Tone Muscle Tone WNL Yes M6 PT-IP Treatment Start: 08/13/22 14:07 Freq: NEEDED Status: Active Protocol: Document 08/13/22 13:15 AB (Rec: 08/13/22 14:18 AB [id number]) Physical Therapy Treatment Education Education Provided Precautions,Weight Bearing Status,Post-Op Packet,Safety M7 PT-IP Assessment and Plan Start: 08/13/22 14:07 Freq: NEEDED Status: Active Protocol: Document 08/13/22 13:15 AB (Rec: 08/13/22 14:18 AB [id number]) PT Summary Assessment and Plan Potential Rehabilitation Potential Fair Status of Condition at Evaluation Evolving Summary Impairments Pain,ROM,Strength,Balance, Coordination,Sensation,Tone, Cognition,Bed Mobility, Transfers,Gait,Activity Tolerance Assessment Summary pt requiring min A with mobility using fWW. caregiver training set up with PATRICIA to come in tomorrow @ 9am. pt will plans to go home and either her DIL or son will stay with her for ~ 10 days to assist her. pt stated that she has outpt PT scheduled. Goals Bed Mobility Goal Independent Transfer Goal Independent,Front Wheeled Walker Gait Goal Independent,Front Wheel Walker Gait Distance 150 Other Goals up/down 3 steps R rail ascending SBA Days to Meet Goals 5 Frequency of Treatment Frequency Of Treatment Twice a Day Treatment Plan Physical Therapy Treatment Plan Bed Mobility Training,Transfer Training,Gait Training, Therapeutic Exercise,Balance Retraining,Post Op Education, Discharge Planning,Hot or Cold Pack,Neuromuscular Re-ed, Coordination Retraining,Manual Therapy Precautions Anterior Hip Precautions No Hip Extension,No Hip External Rotation Weight Bearing Status Weight Bearing Status Weight Bear as Tolerated Allowed Weight Bearing Amount (enter % LLE WBAT or #) (%) Recommendations To Nursing Amount of Assist Needed 1 Person Assist Discharge Recommendations PT Discharge Recommendations Home with Assistance, Outpatient PT Transportation Needs at Discharge Private Vehicle
[2022-08-13] MEDS: OXYCODONE IR 5 MG TABLET PO (15:44)
[2022-08-13] MEDS: ONDANSETRON 4 MG/2 ML INJ IV (15:44)
--- NOTE | 2022-08-13 18:55 | PC.NURSE ---
Pt arrived from PACU this afternoon. VSS, afebrile on RA. LR at 100 ml/hr, she initially reports pain 7/10 after block wears off. This evening she reports pain much better controlled with scheduled and prn pain medications (zofran given to prevent n/v with narcotics) She is able to eat dinner and tolerated it well. Aquacel to L hip c/d/I. She is able to void and work with PT. Anticipating discharge home tomorrow to [place]. She has a reservation for noon Txt4. Reported off to oncoming shift.
[2022-08-13] MEDS: DOCUSATE 100 MG CAPSULE PO (20:08)
[2022-08-13] MEDS: ASPIRIN EC 81 MG TABLET PO (20:08)
--- NOTE | 2022-08-13 21:43 | PC.NURSE ---
Patient is alert and oriented. Breath sounds CTA with RA sat of 98%. HRR. Complains of slight nausea so was medicated with Zofran at 2000 and has had no emesiss. BT hypoactive but reports she is passing flatus. Denies dysuria, frequency or urgency with urination. Is able to move herself in bed. Up to bathroom with walker and 1 assist. Aquacel dressing to left anterior hip is CDI. States pain is 3/10 and declines need for pain medication but is accepting of ice pack; will receive scheduled Tylenol + Ibuprofen at 0000. Wearing bilateral calf SCD's. CMS is intact. Fall risk score is moderate and bed alarm is activated.
[2022-08-14 00:15] VITALS: BP 151/79; PULSE 72; RESP 16; TEMP 36.6; O2SAT 97
[2022-08-14 03:47] VITALS: BP 148/65; PULSE 68; RESP 16; TEMP 36.3; O2SAT 98
[2022-08-14] MEDS: IBUPROFEN 400 MG TABLET PO (05:53)
[2022-08-14] MEDS: ACETAMINOPHEN 325 MG TABLET 650 MG PO (05:53)
--- NOTE | 2022-08-14 06:41 | P.DS_ITS ---
History of Present Illness History of Present Illness Date Patient Seen: 08/14/22 Time Patient Seen: 06:41 Chief complaint: Left HODA anterior approach Narrative: Operative Date/Time/Diagnoses Date of procedure: 08/13/22 Time of procedure: 07:55 Pre-op diagnosis: left hip OA Post-op diagnosis: same Procedure & Clinicians Procedure: Left total hip arthroplasty anterior approach Same procedure as scheduled: Yes Indications: The patient has had progressively worsening left hip pain with radiographic changes consistent with arthritis. Non-operative management has failed and the patient has requested total hip replacement. The risks, benefits and alternatives to surgery were discussed with the patient prior to proceeding. Risks discussed included, but were not limited to, failure to relieve pain, leg length discrepancy, dislocation, stiffness, infection, nerve damage, deep venous thrombosis, pulmonary embolism, stroke, coma, heart attack, permanent paralysis and , as well as the potential need for eventual revision of the prosthetic. Surgeon: [facility] Manager: Eriberto Ledezma Anesthesia Type: General and Spinal Operative Notes Findings: Severe left hip osteoarthritis, good stability, soft bone Closure Type: primary Specimen(s): none sent Prosthetic devices, grafts, tissues, transplants, or devices: [employer] R3 54 cup, neutral poly liner, size 6 standard offset anthol ogy,-3 x 36 cobalt chrome femoral head, one 6.5mm screw Estimated Blood Loss (mL): 250 Blood products transfused: none Discharge Providers Provider Discharge Date: 08/14/22 Primary care physician: OSEI Peters Consults: 08/13/22 06:00 Consult to Anesthesiology Routine Comment: Consulting Provider: Anesthesiologist Reason for consultation: Regional block for post operative pain control 08/13/22 11:31 Consult to Discharge Planning Routine Comment: Consult to Physical Therapy Evaluate & Treat Comment: Physician Instructions: post op HODA protocol Consult to Respiratory Therapy Evaluate & Treat Comment: Physician Instructions: Evaluate and treat Discharge provider: Maria Ines Schmitz PA-C Summary Hospital Course Discharge Diagnosis: Left hip osteoarthritis, s/p L HODA Hospital Course: Ms Cai's hospital course was unremarkable. On POD#1 she was feeling well and wanted to go home. She has a h/o achalasia and was having some nausea but tolerating liquids and soft foods. She was voiding without difficulty. Pain was well-controlled with oral medication. She was evaluated by PT and felt to be safe for discharge home. Exam Vital Signs (past 8 hours): - 08/14/22 00:15 08/14/22 03:47 Temperature 97.8 F 97.4 F L Pulse Rate 72 68 Respiratory Rate 16 16 Blood Pressure 151/79 H 148/65 H Pulse Oximetry 97 98 Oxygen Flow Rate 0 0 Oxygen Delivery Method Room Air Oxygen Flow Rate 0 Narrative Exam Narrative: 5/5 strength in hip flexors, quadriceps, hamstrings, DF, PF, EHL on left. Sensation to light touch intact throughout leg. Calves soft, compressible, nontender and without palpable cords or masses. Objective Labs Result Diagrams: 08/14/22 05:42 Labs: Laboratory Results - last 24 hr 08/14/22 05:42 Hgb 12.0 Hct 36.0 PFSH Medical History (Updated 08/21/21 @ 09:37 by Erin Hayden) Achalasia (~2011) Actinic keratosis (~2005) Afib Allergic rhinitis Basal cell carcinoma (BCC) of face Breast cancer, right Cataract fragments of both eyes following cataract surgery (~2011) Chickenpox Chronic back pain (~2000) Chronic dermatitis (~2005) Colon polyps (~2007) Diverticulosis Dyspareunia (~2014) Dysphasia Hearing loss (~2013) Hemorrhoids (~2010) Measles Mumps Osteopenia Postmenopausal Sciatica Shingles Shoulder pain (~1986) Squamous cell carcinoma Swallowing difficulty Tendinopathy of right rotator cuff Unilateral primary osteoarthritis, right hip Vertigo Surgical History (Updated 08/06/22 @ 14:05 by Tina Jean RN) History of blepharoplasty History of colonoscopy History of esophagogastroduodenoscopy (EGD) History of total replacement of right hip (11/12/18) Social History household members: none Smoking Status: Former smoker alcohol intake: former Discharge Assessment & Plan Assessment and Plan Assessment: s/p LEFT total hip arthroplasty, anterior approach Plan of Treatment: Discharge home, outpt PT, follow up in 2 weeks. Pt has all of her discharge medications for pain and VTE prophylaxis, but would like Zofran for nausea. Discharge Plan Discharge Plan Patient Disposition: Home Discharge orders & Medications Discharge Orders: Discharge (Order); Ordered 08/14/22 Ordered By: Maria Ines Schmitz Prescriptions: New oxycodone 5 mg Tablet 5 mg PO Q4H PRN (Reason: Pain, Moderate (4-6)) Qty: 1 0RF ondansetron 4 mg Tablet,Disintegrating 4 mg PO Q6H PRN (Reason: Nausea) Qty: 30 0RF Continued chlorpheniramine maleate [Chlor-Trimeton] 4 mg Tablet 4 mg PO PRN PRN (Reason: Allergies) ibuprofen 200 mg Tablet 200 mg PO PRN PRN (Reason: Pain) cholecalciferol (vitamin D3) [Vitamin D3] 5,000 unit Tablet 15,000 unit PO DAILY acetaminophen 325 mg tablet 650 mg PO DAILY PRN (Reason: Pain) Follow up/Referrals: Caity Linder ARNP [Primary Care Provider] - Zoraida Andrade MD [Physician] - As previously scheduled (Follow up w/ Dr Andrade on 08/28/2022 @ 1:30 pm at [facility] [place] [facility].) Diet/Activity/Treatments Diet: Diet as Tolerated Activity: Walk frequently! Anterior hip precautions. Cold/Heat Therapy: Ice to hip as needed for pain. Skin/Wound/Dressing Care Report to your healthcare provider any signs of infection, such as:: chills, fever, night sweats, unusual drainage and unusual redness Dressing: May shower. Leave Aquacel dressing in place until follow up appointment. No bathing or otherwise soaking incision. Visit Report/Discharge Packet Instructions: DI for Hip Replacement Stand Alone Forms: Surgery Discharge Discharge Data Primary Care Provider: Caity Linder Attending Provider: Zoraida Andrade
[2022-08-14 08:04] VITALS: BP 135/71; PULSE 75; RESP 16; TEMP 36.8; O2SAT 97
[2022-08-14] MEDS: DOCUSATE 100 MG CAPSULE PO (08:31)
[2022-08-14] MEDS: CHOLECALCIFEROL (VITAMIN D3) 5,000 UNIT TABLET 15000 UNIT PO (08:31)
[2022-08-14] MEDS: ASPIRIN EC 81 MG TABLET PO (08:31)
[2022-08-14] MEDS: OXYCODONE IR 5 MG TABLET PO (08:31)
--- NOTE | 2022-08-14 08:57 | PT.IPTN ---
Current Diagnoses Unilateral primary osteoarthritis, left hip (08/13/22) Surgery Performed Operation Date: 08/13/22 07:45 Actual Procedures p Total Hip Arthroplasty/Anterior Approach(Left) - Zoraida Andrade MD Physical Therapy Treatment Note M2 PT-IP Current Condition Start: 08/13/22 14:07 Freq: NEEDED Status: Discharge Protocol: Document 08/13/22 13:15 AB (Rec: 08/13/22 14:18 AB [email or web address]) Physical Therapy Current Condition Current Condition Evaluation Date 08/13/22 Treatment Diagnosis s/p L HODA anterior appraoch; difficulty in walking Onset Date 08/13/22 M3 PT-IP Subjective Start: 08/13/22 14:07 Freq: NEEDED Status: Discharge Protocol: Document 08/14/22 08:57 AB (Rec: 08/14/22 12:08 AB [email or web address]) Subjective Physical Therapy Visit Type Type Treatment Note Visit Start Time 08:57 Visit Stop Time 09:35 Total Visit Minutes 38 Number of MACHINE SHOP APPRENTICE Visits 0 Physical Therapy Visit Comments Patient Comments agreeable to do PT; daughter- in-law in room for training Therapy Pain Assessment Location Left Hip Intensity 3 Scale Used Numeric (0 - 10) Pain Management Techniques Distraction,Modification of Treatment,Re-positioning, Timing of Activity with Medications M4 PT-IP Mobility and Gait Start: 08/13/22 14:07 Freq: NEEDED Status: Discharge Protocol: Document 08/14/22 08:57 AB (Rec: 08/14/22 12:08 AB [id number]) PT-Bed Mobility Assessment Supine to Sit Supine to Sit Standby Assistance PT-Transfer Assessment Sit to and From Stand Sit to and from Stand Contact Guard Assistance,1 Person Assistance,Use of Upper Extremities Equipment Transfer Assistive Device Gait Belt,Front Wheeled Walker Orthotic/Prosthetic Devices or Brace: No Transfers Transfer Destination Chair Transfer Technique ambulated Transfer Ability Level of Assist Contact Guard Assistance,1 Person Assistance,Use of Upper Extremities Comments Mobility Comments pt able to recall hip precautions. completed supine to sit SBA. educated DIL on how to assist pt if needed with bed mobility and how to cue for techniques. educated DIL on use of safety belt and how to assist pt. DIL able to put safety belt on pt. assisted pt with sit to stand and ambulation using FWW to the chair CGA. educated pt and DIL regarding stair climbing. pt ambulated in the hallway ~ 150 ft using FWW SBA to CGA with DIL assisting. pt completed up/down steps using R rail +SPC x 2 sets with DIL assisting. pt ambulated back to her room and requested to use the toilet. ambulated to the toilet using FWW SBA and DIL assisting pt. Left pt with DIL. Pt and DIL without further concerns. Gait Assessment Gait Gait Assistance Required: Standby Assistance,Contact Guard Assist Distance (Feet) 150 Able to Maintain Weight Bearing Status Yes During Gait Assistive Devices Assistive Device Gait Belt,Front Wheeled Walker Orthotic/Prosthetic Devices or Brace: No Gait Deviations General Gait Pattern Decreased Stride Length, Decreased Feet Clearance Factors Limiting Gait Function Factors Limiting Gait Function Decreased Activity Tolerance, Decreased Strength,Limited Range of Motion,Pain,Poor Balance,Poor Safety Awareness Stair Climbing Assessment Evaluation Level of Assist On Stairs Contact Guard Assistance Devices Stair Climbing Assistive Devices Straight Cane,Right Railing Technique/Endurance Stair Climbing Direction Ascend and Descend Stair Climbing Technique Step to Step Number of Steps Climbed 3 Stair Climbing Set # Repetitions (reps) 2 M5 PT-IP Objective Assessments Start: 08/13/22 14:07 Freq: NEEDED Status: Discharge Protocol: Document 08/13/22 13:15 AB (Rec: 08/13/22 14:18 AB [email or web address]) Orientation Orientation/Cognition Level of Alertness Alert Orientation Name Language Function Ability No Deficits Noted Safety Awareness Decreased Safety Awareness Memory Description No Deficits Noted Gross Range of Motion Lower Extremity ROM Assessment Within Functional Limits Strength Lower Extremity Strength Assessment Left Impaired Hip 3+/5 Knee 4-/5 Coordination Assessment Gross Coordination Gross Coordination WNL Sensation Assessment Sensation Gross Sensation WNL Muscle Tone Muscle Tone WNL Yes M6 PT-IP Treatment Start: 08/13/22 14:07 Freq: NEEDED Status: Discharge Protocol: Document 08/14/22 08:57 AB (Rec: 08/14/22 12:08 AB [email or web address]) Physical Therapy Treatment Education Education Provided Weight Bearing Status,Safety M7 PT-IP Assessment and Plan Start: 08/13/22 14:07 Freq: NEEDED Status: Discharge Protocol: Document 08/14/22 08:57 AB (Rec: 08/14/22 12:08 AB [email or web address]) PT Summary Assessment and Plan Potential Rehabilitation Potential Good Summary Impairments Pain,ROM,Strength,Balance, Coordination,Sensation,Tone, Cognition,Bed Mobility, Transfers,Gait,Activity Tolerance Assessment Summary caregiver training conducted and PATRICIA able to assist pt safely. pt plans to go home with PATRICIA assisting and also her son will assist her. pt may go home when medically stable Goals Bed Mobility Goal Independent Transfer Goal Independent,Front Wheeled Walker Gait Goal Independent,Front Wheel Walker Gait Distance 150 Other Goals up/down 3 steps R rail ascending SBA Days to Meet Goals 5 Frequency of Treatment Frequency Of Treatment Twice a Day Treatment Plan Physical Therapy Treatment Plan Bed Mobility Training,Transfer Training,Gait Training, Therapeutic Exercise,Balance Retraining,Post Op Education, Discharge Planning,Hot or Cold Pack,Neuromuscular Re-ed, Coordination Retraining,Manual Therapy Precautions Anterior Hip Precautions No Hip Extension,No Hip External Rotation Weight Bearing Status Weight Bearing Status Weight Bear as Tolerated Allowed Weight Bearing Amount (enter % LLE WBAT or #) (%) Recommendations To Nursing Amount of Assist Needed 1 Person Assist Discharge Recommendations PT Discharge Recommendations Home with Assistance, Outpatient PT Transportation Needs at Discharge Private Vehicle
--- NOTE | 2022-08-14 11:06 | PC.NURSE ---
Addendum entered by Eden Edouard R.N. 08/14/22 11:27: Patient is discharged. Asked if she was comfortable before leaving and she stated yes. Out to car with Lonny nowak. Original Note: Patient given oxycodone for pain and working with physical therapy. She is cleared to go back to [place] today and will leave here at 1130. Dressing to l.anterior hip is cdi, and patient is using walker to ambulate.
--- NOTE | 2022-08-14 11:42 | CM.DPNOTE ---
Discharge Planning Note: Patient underwent L HODA yesterday. She was seen by PT and confirmed safe to return home. Patient discharged this morning before this DCP had a chance to assess. Genesis Riley RN/DCP
== END 2022-08-14 11:29 | disposition home or self-care (01) ==
LOC: OR 05:51 → AC 05:53
PROVIDERS: Family Provider Ophthalmology; PCP Nurse Practitioner Family; Referring Provider Orthopaedic Surgery; Visit Provider Orthopaedic Surgery
PROC: (CPT 27130; principal; 2022-08-13 07:45)
DX: M16.12 Unilateral primary osteoarthritis, left hip (principal)
CPT/HCPCS: 27130; 36415; 73502; 85014; 85018; 97162; 97530; C1776; C9290; J0171; J0690; J1100; J2250; J2405; J2704

== ENCOUNTER → 2023-08-28 14:12 | Outpatient (CLI) | payer OTHER, SELFPAY ==
[2022-08-13 12:47] VITALS: BMI 25.5
--- NOTE | 2023-08-28 | DI.RAD.S_ITS ---
Bone Density Report Name: RICKY RAZA Age: 78 Sex: Female Ethnicity: White Date of : 1945 Indication: postmenopausal; screening for osteoporosis; Referring Provider: MILE NEGRON Study: Bone densitometry was performed. Exam Date: August 28, 2023 Accession number: [id number] Bone Density: Region BMD T-score Z-score Classification AP Spine(L1, L2, L3) 0.817 -1.8 0.6 Osteopenia Total Forearm (Left) 0.433 -2.7 0.0 Osteoporosis 1/3 Forearm (Left) 0.583 -1.8 1.0 Osteopenia UD Forearm (Left) 0.284 -2.7 -0.7 Osteoporosis World Health Organization criteria for BMD impression classify patients as: Normal (T-score at or above -1.0), Osteopenia (T-score between -1.0 and -2.5), or Osteoporosis (T-score at or below -2.5). Impression: The patient has low bone mass, based on the Total Spine T-score. Discussion: BONE DENSITY IS LOW AT ONE OR MORE SKELETAL SITES. This patient's lowest T-score is low at one or more skeletal sites. It meets the World Health Organization's (WHO) criteria for low bone mass (T-score between -1.0 and -2.5). The patient's 10-year risk of fracture as calculated by FRAX is less than the threshold where pharmacological therapy is recommended by the National Osteoporosis Foundation (NOF). However, all treatment decisions require clinical judgment and consideration of individual patient factors, including patient preferences, comorbidities, previous drug use, risk factors not captured in the FRAX model (e.g., frailty, falls, vitamin D deficiency, increased bone turnover, interval significant decline in bone density) and possible under or overestimation of fracture risk by FRAX. The patient should follow a healthful lifestyle (good nutrition with adequate calcium and vitamin D, and appropriate weight-bearing exercise). Follow-Up: Consider repeating this study in 2 to 3 years to reassess this patient's status, or sooner if there is some new clinical indication. Reported by: BLAIR ZHENG M.D. on 08/28/2023 2:32:00 PM.
== END ==
PROVIDERS: Family Provider Ophthalmology; PCP Family Medicine; Referring Provider Family Medicine; Visit Provider Family Medicine
DX: M81.0 Age-related osteoporosis without current pathological fracture (principal); Z78.0 Asymptomatic menopausal state; Z79.83 Long term (current) use of bisphosphonates; Z92.23 Personal history of estrogen therapy
CPT/HCPCS: 77080; 77081

== ENCOUNTER → 2025-07-14 11:15 | Outpatient (CLI) | payer OTHER, SELFPAY ==
[2022-08-13 12:47] VITALS: BMI 25.5
[2025-07-14 11:41] LABS: Add Manual Diff / Slide Review NO; Hematocrit 43.2 % (36-46); Hemoglobin 14.6 g/dL (12.0-16.0); Lymphocytes Absolute Auto 1500 /uL (1100-4500); Mean Corpuscular HGB Conc 33.7 % (30-36); Mean Corpuscular Hemoglobin 31.8 PG (26-34); Mean Corpuscular Volume 94.4 fL (80-100); Platelet Count 157 X10^3/uL (150-400)
[2025-07-14 11:55] LABS: Alanine Aminotransferase 26 IU/L (<35); Albumin 4.4 g/dL (3.5-5.0); Albumin Globulin Ratio 1.5 (1.0-2.8); Alkaline Phosphatase 94 U/L (38-126); Blood Urea Nitrogen 23 mg/dL (7-17); Calcium 9.9 mg/dL (8.4-10.2); Carbon Dioxide 27 mmol/L (22-32); Chloride 104 mmol/L (98-107); Estimated Glomerular Filt Rate > 60 mL/min (>60); Globulin 2.9 g/dL (1.7-4.1); Glucose 97 mg/dL (70-99); HEMOLYSIS < 15 (0-50); Potassium 4.5 mmol/L (3.4-5.1); Sodium 139 mmol/L (137-145); Total Protein 7.3 g/dL (6.3-8.2)
[2025-07-14 12:11] LABS: Vitamin D 25 Hydroxy (D3) 106 ng/mL (30.0-100.0)
== END ==
PROVIDERS: PCP Family Medicine; Referring Provider Family Medicine; Visit Provider Family Medicine
DX: K22.0 Achalasia of cardia (principal); L98.9 Disorder of the skin and subcutaneous tissue, unspecified; Z72.820 Sleep deprivation; R63.5 Abnormal weight gain; R53.83 Other fatigue; M81.0 Age-related osteoporosis without current pathological fracture; Z78.0 Asymptomatic menopausal state
CPT/HCPCS: 36415; 80053; 82306; 85025